=== PATIENT | female | born 1955 | race Caucasian/White ===

== ENCOUNTER → 2017-04-11 | Outpatient (CLI) | payer BC ==
--- NOTE | ~2017-04-11 | MY11 ---
[facility] A Service of [facility] RADIOLOGY TEXT RESULTS PATIENT: RUTHIE SIM LOCATION: [facility] : 59 UNIT #: [id number] AGE: [address]: Darnell Gonzalez MD SEX: F ORDER DR: [id number] [facility] [address] [place], [place] [address] [id number] O MR#: [id number] Acc #: [id number] NAME: RUTHIE SIM : 1955 SEX: F STUDY DATE/TIME: 04/11/2017 10:32 UNIT: [facility] ROOM: STUDY DESCRIPTION: MY Mammogram Screening Dig Rafiq Attending Physician: Darnell Gonzalez M.D. Referring Physician: Darnell Gonzalez M.D. Ordering Physician: Darnell Gonzalez M.D. Primary Care Physician: Darnell Gonzalez M.D. MEDICAL IMAGING REPORT This report is preliminary unless electronic signature is present EXAM Digital screening mammogram 04/11/2017. [facility] HISTORY 62-year-old woman no risk elevation. Annual screening COMPARISON: 12/03/2013, followup diagnostic right breast imaging 09/17/2014 FINDINGS Digital imaging of each breast was completed utilizing screening protocol. Review includes FDA-approved CAD device. Breast parenchyma is mildly heterogeneous with residual fibroglandular opacities in each breast. There is no breast mass. I see no suspicious microcalcifications and no architectural deformity. IMPRESSION Negative mammogram. Annual screening recommended. Patients over the age of 40 are entered into a reminder system with target due date for the next mammogram. A result letter will also be sent to the patient. BIRADS: 1 - negative Dictated by... Luis M Knox M.D. [facility] A Service of [facility] RADIOLOGY TEXT RESULTS PATIENT: RUTHIE SIM LOCATION: [facility] : 59 UNIT #: [id number] AGE: [address]: Darnell Gonzalez MD SEX: F ORDER DR: THIS IS AN ELECTRONICALLY VERIFIED REPORT Luis M Knox M.D. at 04/11/2017 11:51 AM MAGALY/david TD: 04/11/2017 11:09 JOB #: [id number] MEDICAL IMAGING REPORT Page 1 of 1 COPY
== END | disposition home or self-care (01) ==
LOC: CWCC 10:13
DX: Z12.31 Encounter for screening mammogram for malignant neoplasm of breast (principal)
CPT/HCPCS: G0202